=== PATIENT | male | born 1985 | race Caucasian/White ===

== ENCOUNTER 2022-05-03 15:10 | Emergency (ER) | payer OTHER, MEDICAID ==
[~2022-05-03] VITALS: Ht 167.6 cm; Wt 84.5 kg
[2022-05-03 15:11] VITALS: BP 118/81
== END 2022-05-03 17:28 | disposition home or self-care (01) ==
LOC: ER 15:11
DX: J02.9 Acute pharyngitis, unspecified (principal); E78.00 Pure hypercholesterolemia, unspecified; Z88.8 Allergy status to other drugs, medicaments and biological substances
CPT/HCPCS: 87081; 87880; 99283

== ENCOUNTER 2023-11-05 19:37 | Emergency (ER) | payer MEDICAID, MEDICARE, OTHER ==
[~2023-11-05] VITALS: Ht 167.6 cm; Wt 87.1 kg
[2023-11-05 20:40] LABS: BILIRUBIN,URINE NEGATIVE (Neg); CLARITY,URINE CLEAR (Clear); COLOR,URINE YELLOW (Yellow); GLUCOSE, URINE NEGATIVE (Neg); KETONES,URINE NEGATIVE (Neg); LEUKOCYTE ESTERASE ,URINE NEGATIVE (Neg); NITRITES, URINE NEGATIVE (Neg); OCCULT BLOOD,URINE NEGATIVE (Neg); PH,URINE 5.5 (4.8-8.0); PROTEIN,URINE NEGATIVE (Neg); UROBILINOGEN,URINE 0.2 E.U/dL (0.2-1.0)
[2023-11-05 20:43] LABS: BASOPHILS # (AUTO) 0.1 X10'3 (0-0.2); BASOPHILS % (AUTO) 0.6 % (0-1); EOSINOPHILS # (AUTO) 0.2 X10'3 (0-0.9); EOSINOPHILS % (AUTO) 2.4 % (0-6); HEMATOCRIT 41.6 % (42.0-52.0); HEMOGLOBIN 13.6 g/dl (14.0-17.9); LYMPHOCYTES # (AUTO) 2.8 X10'3 (1.1-4.8); LYMPHOCYTES % (AUTO) 30.4 % (21-51); MEAN CORPUSCULAR HEMOGLOBIN 26.3 PG (27.0-31.0); MEAN CORPUSCULAR HGB CONC 32.8 g/dL (33.0-36.5); MEAN CORPUSCULAR VOLUME 80.2 FL (78-98); MEAN PLATELET VOLUME 7.8 FL (7.4-10.4); MONOCYTES # (AUTO) 0.8 X10'3 (0-0.9); MONOCYTES % (AUTO) 8.4 % (2-12); NEUTROPHILS # (AUTO) 5.4 X10'3 (1.8-7.7); NEUTROPHILS % (AUTO) 58.2 % (42-75); PLATELET COUNT 329 X10'3 (140-440); RED BLOOD COUNT 5.19 X10'6 (4.70-6.10); RED CELL DISTRIBUTION WIDTH 20.3 % (11.5-14.5); WHITE BLOOD COUNT 9.3 X10'3 (4.5-11.0)
[2023-11-05 20:45] LABS: UA COLLECTION TYPE URINAL
[2023-11-05 20:53] LABS: ALBUMIN 3.9 G/DL (3.4-5.0); ANION GAP 7 (8-16); BLOOD UREA NITROGEN 15 MG/DL (7-18); BUN/CREATININE RATIO 13.8 (10.0-20.0); CALCIUM 8.6 MG/DL (8.5-10.1); CHLORIDE 104 MMOL/L (99-107); CREATININE 1.09 MG/DL (0.60-1.10); ETHANOL < 10 MG/DL (<10); GLUCOSE 93 MG/DL (70-104); POTASSIUM 3.7 MMOL/L (3.5-5.1); SODIUM 140 MMOL/L (135-145); TOTAL CARBON DIOXIDE 29.1 MMOL/L (24-32); eCRCL 83 ML/MIN; eGFR 76 ML/MIN
[2023-11-05 20:53] LABS: URINE AMPHETAMINE SCREEN NEGATIVE (Neg); URINE BARBITUATE SCREEN NEGATIVE (Neg); URINE BENZODIAZEPINES SCREEN NEGATIVE (Neg); URINE CANNABINOID SCREEN NEGATIVE (Neg); URINE COCAINE SCREEN NEGATIVE (Neg); URINE METHADONE SCREEN NEGATIVE (Neg); URINE OPIATE SCREEN NEGATIVE (Neg); URINE PHENCYCLIDINE SCREEN NEGATIVE (Neg)
[2023-11-05 21:27] LABS: ANISOCYTOSIS 3+; PLATELET ESTIMATE NORMAL
[2023-11-05 21:31] LABS: ELLIPTOCYTES 1+; POIKILOCYTOSIS 1+
[2023-11-05] MEDS ORDERED: OMEP20TA23 PO (22:30)
[2023-11-05] MEDS ORDERED: DULO-31 PO (22:30)
[2023-11-05] MEDS ORDERED: QUET25TA PO (22:30)
[2023-11-05 22:33] LABS: THYROID STIMULATING HORMONE 3.94 ulU/ml (0.34-4.50)
[2023-11-06] MEDS: pantoprazole 40mg Tablet.DR PO SCH (08:22)
[2023-11-06] MEDS: duloxetine 30mg CAPSULE.DR PO SCH (08:22)
[2023-11-06] MEDS: QUEtiapine 25mg tablet PO SCH (20:34)
[2023-11-08 17:55] VITALS: BP 101/74; PULSE 100; TEMP 98.1; O2SAT 100
[2023-11-08 19:17] VITALS: RESP 18
== END 2023-11-09 03:33 | disposition home or self-care (01) ==
LOC: ER 19:37
DX: R45.851 Suicidal ideations (principal); E78.00 Pure hypercholesterolemia, unspecified; F41.9 Anxiety disorder, unspecified; F20.9 Schizophrenia, unspecified; Z20.822 Contact with and (suspected) exposure to COVID-19; Z88.8 Allergy status to other drugs, medicaments and biological substances; Z88.6 Allergy status to analgesic agent
CPT/HCPCS: 36415; 80048; 80305; 80320; 81003; 84443; 85008; 85025; 87811; 99284